=== PATIENT | female | born 1995 ===

== ENCOUNTER 2021-11-07 21:18 | Emergency (ER) | payer SELFPAY ==
--- NOTE | 2021-11-07 22:02 | XRay Report ---
CHEST 2 VIEWS INDICATION / CLINICAL INFORMATION: CHEST PAIN. FINDINGS: SUPPORT DEVICES: None. HEART / MEDIASTINUM: No significant abnormality. LUNGS / PLEURA: No significant pulmonary or pleural abnormality. No pneumothorax. ADDITIONAL FINDINGS: No significant additional findings. IMPRESSION: 1. No acute findings. Signer Name: Brenton Desai MD Signed: 11/07/2021 9:57 PM Workstation Name: [email or web address]
--- NOTE | 2021-11-10 13:16 | Electrocardiograph Report ---
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
== END 2021-11-08 05:45 | disposition left against medical advice (07) ==
LOC: ED 21:18
DX: R07.89 Other chest pain (principal); Z53.21 Procedure and treatment not carried out due to patient leaving prior to being seen by health care provider
CPT/HCPCS: 71046; 93005